=== PATIENT | female | born 1995 | race Caucasian/White ===

== ENCOUNTER 2018-02-04 07:35 | Day surgery (SDC) | payer OTHER ==
[2018-02-03 08:37] VITALS: BMI 33.3
[2018-02-04] MEDS ORDERED: CEFAZOLIN 2 GM/50 ML BAG ONE (07:54)
[2018-02-04 08:08] LABS: #Basophils 0.1 thou/uL (0.0-0.2); #Eosinphils 0.4 thou/uL (0.0-0.7); #Lymphocytes 1.8 thou/uL (1.20-3.40); #Monocytes 0.5 thou/uL (0.11-0.59); #Neutrophils 4.5 thou/uL (1.40-6.50); %Basophils 0.9 % (0.0-1.0); %Eosinophils 5.2 % (0.0-10.0); %Lymphocytes 24.4 % (21.0-51.0); %Monocytes 7.5 % (0.0-10.0); Hemoglobin 12.9 g/dL (12.0-16.0); Mean Corpuscular HGB CONC 32.4 g/dL (32.0-36.0); Mean Corpuscular Volume 86.3 fL (78.0-98.0); Mean Platelet Volume 8.5 fL (7.4-10.4); Platelet Count 326 thou/uL (130-400); RBC Distribution Width 12.1 % (11.5-14.5); Red Blood Cell (RBC) Count 4.62 mill/uL (4.20-5.40); White Blood Cell (WBC) Count 7.2 thou/uL (4.8-10.8)
[2018-02-04 08:17] LABS: BHCG - Serum Negative (NEGATIVE); Pregs Control Background? CLEAR/WHITE (CLR/WHITE); Pregs Control Bar Appear? YES (CONTROL BAR)
[2018-02-04] MEDS ORDERED: Midazolam HCl 2 mg/2 ml Vial ONE (08:51)
[2018-02-04] MEDS ORDERED: Bupivacaine/Epinephrine 0.25% 30 ML VIAL ONE (09:16)
[2018-02-04] MEDS ORDERED: Fentanyl 100 MCG/2 ML VIAL ONE ×3 (09:36→11:09)
[2018-02-04] MEDS ORDERED: Bupivacaine HCl 0.5%/Epinephrine 1:200,000/PF 30 ml Vial ONE (09:38)
[2018-02-04] MEDS ORDERED: Meperidine HCl/PF 25 MG/ML VIAL ONE (10:19)
[2018-02-04] MEDS ORDERED: Promethazine HCl 25 MG/ML VIAL IM/IV PRN (10:28)
[2018-02-04] MEDS ORDERED: Ondansetron HCl/PF 4 MG/2 ML Vial IVP PRN (10:28)
--- NOTE | 2018-02-04 13:32 | OP ---
PREOPERATIVE DIAGNOSIS: Painful hardware, left ankle. POSTOPERATIVE DIAGNOSIS: Painful hardware, left ankle. PROCEDURE PERFORMED: Removal of plate from left fibula. SURGEON: Shahbaz Real M.D. ANESTHESIA: General. BLOOD LOSS: Minimal. SPECIMEN: None. DRAINS: None. COMPLICATIONS: None. Hardware was given to the patient. DESCRIPTION OF PROCEDURE: The patient was taken to the operating room where general anesthesia was i nduced. Left leg was prepped and draped in the usual sterile fashion. After exsanguination, tourniq uet was inflated to 300 mmHg. I opened up her old scar, dissected down to the plate. The plate was exposed. Screws were removed. was extracted. Irrigation performed. Tourniquet was released. Hemostasis was obtained. Skin was closed with 2-0 Vicryl and zuleyma. Sterile dressings applied. There were no complications.
== END 2018-02-04 14:43 | disposition home or self-care (01) ==
LOC: SDC 07:35
PROVIDERS: ATTEND Orthopaedic Surgery
PROC: 0SPG04Z Removal of Internal Fixation Device from Left Ankle Joint, Open Approach (ICD-10-PCS; principal; 2018-02-04)
DX: T84.84XA Pain due to internal orthopedic prosthetic devices, implants and grafts, initial encounter (principal)
CPT/HCPCS: 36415; 84703; 85025; 96374; J0670; J2175; J2250; J3010